=== PATIENT | female | born 1985 | race Hispanic/Latino ===

== ENCOUNTER 2023-06-08 16:12 | Emergency (ER) | payer OTHER, SELFPAY ==
[2023-06-08 16:14] VITALS: BP 149/117
[2023-06-08 17:36] VITALS: BP 85/75
[2023-06-08 17:45] VITALS: BP 107/79
[2023-06-08 18:07] LABS: ALT (SGPT) 34 U/L (0-35); AST (SGOT) 27 U/L (14-36); Albumin 3.8 g/dl (3.5-5.0); Alkaline Phosphatase 43 U/L (38-126); Blood Urea Nitrogen 7 mg/dl (7-17); Calcium 9.4 mg/dl (8.4-10.2); Carbon Dioxide 27 mmol/L (22-30); Chloride 107 mmol/L (98-107); Glucose 86 mg/dl (70-99); Lipase 72 U/L (23-300); Potassium 4.4 mmol/L (3.5-5.1); Sodium 136 mmol/L (135-145); Total Bilirubin 0.3 mg/dl (0.2-1.3); Total Protein 6.3 g/dl (6.3-8.2); eGFR > 60.00
[2023-06-08 18:10] LABS: Lactic Acid 0.7 mmol/L (0.7-2.0)
[2023-06-08 18:16] LABS: Hemoglobin 12.9 g/dL (12.0-16.0); Mean Corp Hgb Conc. 33.9 g/dL (33.0-37.0); Mean Corpuscular Hgb 30.9 pg (27.0-31.0); Mean Corpuscular Volume 91.1 fL (81.0-99.0); Mean Platelet Volume 10.4 fL (7.4-10.4); Platelet Count 288 10^3/uL (130-400); Red Blood Cell Count 4.17 10^6/uL (4.20-5.40); Red Cell Dist. Width 12.6 % (11.5-14.5); White Blood Cell Count 11.9 10^3/uL (4.8-10.8)
[2023-06-08 18:23] LABS: HCG, Serum Qualitative Screen Negative
[2023-06-08 18:34] LABS: Urine Albumin Negative (Neg - Trace); Urine Bilirubin Negative (Negative); Urine Character Clear (Clear); Urine Color Yellow; Urine Glucose Negative (Negative); Urine Ketone Negative (Negative); Urine Leukocyte Negative (Negative); Urine Nitrite Negative (Negative); Urine Occult Blood Negative (Negative); Urine Specific Gravity 1.015 (<1.030); Urine Urobilinogen Negative (Neg - 1+)
[2023-06-08 18:52] LABS: Troponin I < 0.012 ng/ml
[2023-06-08 18:57] LABS: TSH Reflex To Free T4 2.15 uIU/ml (0.47-4.68)
--- NOTE | 2023-06-08 20:03 | ED.GENMED ---
History of Present Illness
General
Chief Complaint: Swelling
Source: patient
Exam Limitations: none
Time Seen by Provider: 06/08/23 17:48
Nursing documentation reviewed up to this point in time: agreed with
Travel History
Have you had any contact with someone who has COVID-19?: No
Do you have any symptoms of coronavirus? Fever > 100 degrees, chills, cough, shortness of breath, sore throat, loss of taste or smell, muscle aches, or headache?: No
History of Present Illness
History of Present Illness:
Patient to ED with complaint of RUQ abdominal pain and abdominal bloating. States her symptoms started approx 2.5mos ago but the bloating has gotten rapidly worse over the past week. Denies fever/chills, n/v/d. No prior history of same. Brought
to ED by sig other for eval.
Past History
Past History
ED Past Medical History: Asthma and Other (Told 'years ago' that she was Hep C pos. No treatment, no followup)
ED Past Surgical History: None
Social History
Tobacco: Smoker
Alcohol: None
Personal:
Living: other (Significant other)
Review of Systems
Review of Systems
Allergies reviewed?: Yes
All Other Systems: ROS reviewed and negative except as documented in HPI and ROS
Constitutional: Reports no symptoms
EENT: Reports no symptoms
Respiratory: Reports no symptoms
Cardiac: Reports no symptoms
ABD/GI: Reports abdominal pain (RUQ)
: Reports no symptoms
Musculoskeletal: Reports no symptoms
Skin: Reports no symptoms
Neurological: Reports numbness (pins and needles to fingertips intermittently)
Psychiatric: Reports no symptoms
Phy Exam
General Physical Exam
General Presentation: well appearing and mild distress
General age: appears stated age
General Skin: warm and dry
General Habitus: normal
General Mental: alert
Cardiovascular Exam
Cardiovascular Exam: regular rate/rhythm and no edema
Pulmonary Exam
Pulmonary Exam: lungs clear and no respiratory distress
Gastrointestinal Exam
Gastrointestinal Exam: normal bowel sounds, soft, no organomegaly and distended
Palpation: left upper quadrant: No tenderness, left lower quadrant: No tenderness, right upper quadrant: Moderate tenderness and right lower quadrant: No tenderness
Musculoskeletal Exam
Musculoskeletal Exam: full ROM and neuro vasc intact
Skin Exam
Skin Exam: normal color, warm/dry and no rash
Psychiatric Exam
Psychiatric Exam: normal mood/affect
Course
Orders/Labs/Results
Orders:
Orders
06/08/23 Breakfast
Clear Liquid
At Your Request: Full Participation
Does patient need a safe tray?: No
06/08/23 16:25
Electrocardiogram (*1) Urgent
Reason for Study: Chest Pain
EKG- Treatment ONCE
IV Insert/Care/Rem.- Treatment PRN
06/08/23 17:33
Comprehensive Metabolic Panel Urgent
HCG, Serum Qualitative Screen Urgent
Lactic Acid Urgent
Lipase Urgent
TSH Reflex To Free T4 Urgent
Comment: ADD ON
Blood Culture Urgent
SUMMER Source: Blood/Venous
Specimen Description:
06/08/23 17:59
US Abdomen Complete/Upper Urgent
Comment:
Reason For Exam: upper abd. pain
06/08/23 18:01
Complete Blood Count/No Diff Urgent
Blood Culture Urgent
SUMMER Source: Blood/Venous
Specimen Description:
06/08/23 18:10
Add On- LAB Urgent
Tests Added?: Serum HCG qualitative, TSH reflex to T4
06/08/23 18:15
Troponin I Urgent
Urinalysis Reflex To Culture Urgent
Date Specimen was Collected: 06/08/23
Time Specimen was Collected: 18:11
06/08/23 20:36
GASTROINTESTINAL CONSULT Routine
Consulting Provider: Ortega Cruz
Was physician already notified: Yes
06/08/23 20:46
Admit/Transfer Patient As Directed
Co-Sign Provider:
Level of Care: Inpatient admission
Assign to:: Medical/Surgical
Physician / Group: mary
Diagnosis: abdominal pain
Reason for Hospitalization: abdominal pain
Expected length of stay greater than two midnights?: Yes
ELOS- Estimated Length of Stay in days: 3
I certify the patient meets the requirements for IP care: Yes
06/08/23 20:47
Code Status As Directed
Resuscitation Status: Full Code
Abnormal Lab Results
06/08/23 06/08/23
17:33 18:01
WBC 11.9 H 10^3/uL
(4.8-10.8)
RBC 4.17 L 10^6/uL
(4.20-5.40)
Creatinine 0.5 L mg/dL
(0.6-1.0)
06/08/23 18:01
06/08/23 17:33
Vital Signs
Initial and Last Documented VS:
Initial Vital Signs
Temp Pulse Resp BP Pulse Ox
98.4 F 89 16 149/117 100
06/08/23 16:14 06/08/23 16:14 06/08/23 16:14 06/08/23 16:14 06/08/23 16:14
Last Documented Vital Signs
Temp Pulse Resp BP Pulse Ox
98.4 F 81 26 107/79 99
06/08/23 16:14 06/08/23 17:45 06/08/23 17:45 06/08/23 17:45 06/08/23 17:48
*Critical Care Note
Total Time (30-74mins, 75-104mins- exclusive of procedures): Not Applicable
Update Note
Update Note:
Patient to ED with complaitn of worsening RUQ abdominal pain and bloating. Labs, US reviewed with Dr. Cruz. Will admit to hospitalist for MRCP in AM. Patient is agreeable to plan.
ED Attending Note
-
Portions of this chart may have been created with voice recognition software.� Occasional wrong word or��sound alike� substitutions may have occurred due to the inherent limitations of voice recognition software.
Discharge Plan
Departure
Patient Disposition: Against Medical Advice
Date of Disposition: 06/08/23
Time of Disposition: 20:17
Condition: Fair
Covid-19: Not Applicable
Discharge Problem:
Abdominal pain
Prescriptions:
No Action
No Current Medications
0
Referrals:
NONE,* [Family Provider] -
Interventions
Interventions:
*Risk Screen - Suicide Last Done: 06/08/23 21:13
*General Assessment Last Done: 06/08/23 17:48
*Neglect/Abuse Screening Last Done: 06/08/23 17:48
ED- Fall Risk Assessment Last Done: 06/08/23 17:48
*Nursing Disposition Last Done: 06/08/23 21:16
OI-Zaeaxd-Cbgdgexhew Assessment Last Done: 06/08/23 17:48
ED- Cardiac Assessment Last Done: 06/08/23 17:48
ED- Pulmonary Assessment Last Done: 06/08/23 17:48
ED-Skin Assessment Last Done: 06/08/23 17:48
Discharge Date and Time
Discharge Date/Time: 06/08/23 21:17
Print Language: MALTESE
--- NOTE | 2023-06-08 20:20 | HPS.HSE ---
Family Physician
-
Family Physician: * NONE
Chief Complaint
-
right sided pain
History of Present Illness
37 year old with no significant PMH presented to us with right sided abdominal pain for past two months, which got got worse in 8-10 days. denied any n/v/d. She is very bloated . complained of chills and hot flashes. The pain is intermittent and
sharp. Patient stated no worsening weakness and sleeping more than usual. Denied fever. Patient denied any headache dizziness or syncopal episode. Denied chest pain but complained of short of breath. Patient denied dysuria hematuria . Patient
also complaining of bilateral hands burning and pain.
Ultrasound of abdomen with impression of There is dilatation of the common duct which measures 9 mm suggesting possible distal biliary obstruction. Correlation with patient's liver function tests is recommended and if clinically indicated, this
could be further evaluated with nonemergent MRCP.
Admitting for further management
Medical History
Past Medical History
Past Medical History: Reports None
Past Surgical History: Reports None
Social History
Tobacco: Smoker (1 pack daily)
Alcohol: None
Drug: None
Personal: Partner
Living: With Family
Family History
Family History: Not pertinent
Allergies / Home Medications
Allergies reflects when Allergies were last updated in [facility].
Home Medications with original date entered in [facility]
Allergy/Medication List:
Allergies
Allergy/AdvReac Type Severity Reaction Status Date / Time
Penicillins Allergy Unknown Verified 06/08/23 16:14
Home Medications
No Meds [No Current Medications] 06/08/23
Review of Systems
-
Constitutional: Reports No Symptoms
EENT: Reports No Symptoms
Respiratory: Reports No Symptoms
Cardiac: Reports No Symptoms
Abdomen/GI: Reports No Symptoms and Abdominal Pain
: Reports No Symptoms
Musculoskeletal: Reports No Symptoms
Skin: Reports No Symptoms
Neurological: Reports No Symptoms
Endocrine: Reports No Symptoms
Hematologic/Lymphatic: Reports No Symptoms
Psych: Reports No Symptoms
Physical Exam
Vital Signs
Vital Signs
Temp Pulse Resp BP Pulse Ox
98.4 F 81 26 107/79 99
06/08/23 16:14 06/08/23 17:45 06/08/23 17:45 06/08/23 17:45 06/08/23 17:48
Physical Exam
General: Well Developed, Well Nourished and No Apparent Distress
HEENT: NormoCephalic, Moist mucous membranes and Atraumatic
Respiratory: Clear
Cardiac: S1/S2 and Regular Rhythm; No Murmur or Rub
GI: Soft, Normal Bowel Sounds and Distended; No Organomegaly
Rectal: Deferred by Provider
Musculoskeletal: No Clubbing, No Cyanosis and No Edema
Skin: No Rash
Neuro: AO x 3 and Nonfocal/grossly intact
Psych: Calm
Laboratory Results
-
06/08/23 18:01
06/08/23 17:33
Laboratory Results
Lactic Acid 0.7 mmol/L (0.7-2.0) 06/08/23 17:33
Total Bilirubin 0.3 mg/dl (0.2-1.3) 06/08/23 17:33
AST 27 U/L (14-36) 06/08/23 17:33
ALT 34 U/L (0-35) 06/08/23 17:33
Alkaline Phosphatase 43 U/L (38-126) 06/08/23 17:33
Troponin I < 0.012 ng/ml 06/08/23 18:15
Lipase 72 U/L (23-300) 06/08/23 17:33
Data Reviewed
-
Diagnostic Radiology: Report Reviewed by me
Lab Data: Labs Reviewed by me
Impression/Plan
-
# Right upper quadrant abdominal pain likely from biliary colic/choledocholithiasis passed stone.
-Ultrasound of abdomen with impression of There is dilatation of the common duct which measures 9 mm suggesting possible distal biliary obstruction. Correlation with patient's liver function tests is recommended and if clinically indicated, this
could be further evaluated with nonemergent MRCP.The head of the pancreas is not well visualized because of overlying bowel gas.The pancreas is otherwise normal.There is cholelithiasis. There is diffuse fatty infiltration of the liver
-WBC 11.9
-LFTs normal
-Clear liquid diet
-MRCP in am
-GI consulted
#nicotine dependence
-denied nicotine patch.
#DVT prophylaxis
-scd
#CODE status
-full code
--- NOTE | 2023-06-08 20:56 | W.PN.UPDATE ---
Update Note
Progress Note Update
This note serves as an addendum to the H&P by [employer] farmworker Janice Modi on 06/08/23.
Patient seen and examined independently with TERMINOLOGIST. 37-year-old female without past medical history, presenting with intermittent right upper quadrant abdominal pain and bloating starting 2.5 months ago but worsening over the past week. She has been
having chills. No vomiting or diarrhea. Symptoms not worse with eating. No history of gallstones. No alcohol use. Symptoms resemble biliary colic. She has right upper quadrant tenderness to palpation. Ultrasound of abdomen shows dilatation of
common bile duct 9 mm with possible distal biliary obstruction.
Likely intermittent right upper quadrant abdominal pain secondary to recurrent biliary colic. Worsening pain in the past week possibly due to choledocholithiasis although no abdominal pain currently and no transaminitis suggesting passage of stone.
Blood cultures pending. Clear liquid diet, MRCP, GI consulted.
== END 2023-06-08 21:17 | disposition left against medical advice (07) ==
LOC: EMR 16:12
PROVIDERS: Nurse Practitioner; EMERGENCY PHYSICIAN Emergency Medicine
DX: R10.11 Right upper quadrant pain (principal); J45.909 Unspecified asthma, uncomplicated; F17.200 Nicotine dependence, unspecified, uncomplicated; Z88.0 Allergy status to penicillin
CPT/HCPCS: 99284; 76700; 80053; 81003; 83605; 83690; 84443; 84484; 84703; 85027; 87040; 93005